=== PATIENT | male | born 1985 | race Caucasian/White ===

== ENCOUNTER 2021-12-11 15:06 | Emergency (ER) | payer SELFPAY ==
[2021-12-11 15:18] VITALS: BP 152/98; TEMP 97; BMI 27.0
[2021-12-11 20:56] VITALS: PULSE 87
== END 2021-12-11 20:56 | disposition home or self-care (01) ==
LOC: JERFT 15:06
DX: J01.11 Acute recurrent frontal sinusitis (principal)
CPT/HCPCS: 99283-25

== ENCOUNTER 2023-08-31 09:27 | Emergency (ER) | payer OTHER ==
[2023-08-31 09:34] VITALS: BP 140/77; PULSE 92; RESP 18; TEMP 98.3; BMI 24.4
[2023-08-31] MEDS ORDERED: NAPROXEN 500 MG TABLET ONE (09:59)
[2023-08-31] MEDS: NAPROXEN 500 MG TABLET PO ONE (10:03)
== END 2023-08-31 10:30 | disposition home or self-care (01) ==
LOC: JERFT 09:27
DX: S49.91XA Unspecified injury of right shoulder and upper arm, initial encounter (principal); X50.0XXA Overexertion from strenuous movement or load, initial encounter
CPT/HCPCS: 73030-TC-RT-FY; 99283-25